=== PATIENT | female | born 1955 | race Caucasian/White ===

== ENCOUNTER → 2020-05-30 | Outpatient (CLI) | payer MEDICARE, OTHER ==
[2020-03-07 15:00] VITALS: BP 105/72
[~2020-05-30] MED LIST: ALBU2.5V8 IH; ALPR0.25 PO; APIX5TAB PO; AREDS PO; ATOR20TA58 PO; CITA40TA5 PO; DIGO125T3 PO; DILT300C24 PO; DOXY100T PO; FURO40TA4 PO; HYDR-2763 PO; METO25TA4 PO; MULT-735 PO; POTA20TA4 PO
== END ==
LOC: LAB 14:25
PROVIDERS: ATTEND Internal Medicine Cardiovascular Disease
DX: Z01.812 Encounter for preprocedural laboratory examination (principal); I48.91 Unspecified atrial fibrillation; Z20.828 Contact with and (suspected) exposure to other viral communicable diseases
CPT/HCPCS: U0003

== ENCOUNTER 2020-06-06 10:09 | Day surgery (SDC) | payer MEDICARE, OTHER ==
[~2020-06-06 10:09] MED LIST changes: +HYDROmorphone 2 MG/ML VIAL IVP PRN; +MORPHINE SULFATE 2 MG/ML VIAL. IVP PRN; +PROCHLORPERAZINE 10 MG/2 ML VIAL. IVP PRN; +fentaNYL PF VIAL 100 MCG/2 ML VIAL IVP PRN
[2020-06-06] MEDS ORDERED: PROPOFOL 10 MG/ML (20ML) VIAL. IV ONE (10:12)
[2020-06-06] MEDS ORDERED: LIDOCAINE 2% PF 5 ML VIAL. ONE (10:12)
[2020-06-06] MEDS: IV RINGERS,LACTATED 1000ML 1,000 ML IV SCH (10:33)
--- NOTE | 2020-06-06 10:45 | EKG ---
[facility] [address] [place] [address] Test Date: 2020-06-06 Test Time: 10:42:05 Pat Name: STEPHANI MENJIVAR Department: Room: Gender: F [employer]ter: : 1955 Requested By: YONIS ELIAS Order Number: [id number] Reading MD: Measurements Intervals [place] Rate: 92 P: GA: QRS: 68 QRSD: 86 T: -76 QT: 302 QTc: 378 Interpretive Statements IRREGULAR RHYTHM, NO P-WAVE FOUND LVH WITH REPOLARIZATION ABNORMALITY ABNORMAL ECG RI6.02 No previous ECG available for comparison
[2020-06-06 10:58] LABS: CALCIUM 9.9 mg/dL (8.5-10.1); GFR 55.6; POTASSIUM 4.2 mmol/L (3.5-5.1)
[2020-06-06 10:59] LABS: MAGNESIUM 2.2 mg/dL (1.8-2.4)
[2020-06-06 11:08] LABS: DIG 1.2 ng/mL (0.9-2.0)
--- NOTE | 2020-06-06 12:13 | EKG ---
[facility] [address] [place] [address] Test Date: 2020-06-06 Test Time: 12:11:48 Pat Name: STEPHANI MENJIVAR Department: Room: Gender: F [employer] Department Supervisor: [place] : 1955 Requested By: YONIS ELIAS Order Number: [id number] Reading MD: Measurements Intervals [place] Rate: 66 P: 68 [place]: 222 QRS: 53 QRSD: 88 T: 56 QT: 394 QTc: 415 Interpretive Statements SINUS RHYTHM PROLONGED [place] INTERVAL ABNORMAL ECG RI6.01 Compared to ECG 06/06/2020 10:42:05 First degree AV block now present Left ventricular hypertrophy no longer present Early repolarization no longer present
[2020-06-06 12:24] VITALS: BP 104/49
--- NOTE | 2020-06-06 16:50 | PDOC4 ---
PROCEDURE Procedure Procedure note. The patient is a 65-year-old female who has been followed for atrial fibrillation. She has been treated with rate control medications and anticoagulation for greater than 6 weeks. Laboratory testing shows normal electrolytes and an acceptable digoxin level. During previous office visits we discussed the risks and benefits of cardioversion of atrial fibrillation. We again discussed them today and the patient gave informed consent to proceed with a cardioversion attempt. She was evaluated by the anesthesiology service. She was then sedated as per protocols. Once an adequate level of sedation was obtained she was cardioverted from atrial fibrillation to sinus rhythm with 200 J synchronized on a biphasic device. The patient awoke normally from her sedation. She remained in sinus rhythm. We will continue present medications with follow-up in the office in 3 to 4 weeks. Conclusion. Successful cardioversion of atrial fibrillation to normal sinus rhythm. YONIS ELIAS MD Jun 06, 2020 16:50
== END 2020-06-06 12:51 | disposition home or self-care (01) ==
LOC: SURG 10:09
PROVIDERS: ATTEND Internal Medicine Cardiovascular Disease
DX: Z01.812 Encounter for preprocedural laboratory examination (principal); I48.91 Unspecified atrial fibrillation; I11.0 Hypertensive heart disease with heart failure; I50.30 Unspecified diastolic (congestive) heart failure; J44.9 Chronic obstructive pulmonary disease, unspecified; Z79.899 Other long term (current) drug therapy; Z88.8 Allergy status to other drugs, medicaments and biological substances; Z88.6 Allergy status to analgesic agent
CPT/HCPCS: 36415; 80048; 80162; 83735; 92960; 93005; J2704